=== PATIENT | female | born 1985 | race Caucasian/White ===

== ENCOUNTER 2019-07-25 19:05 | Emergency (ER) | payer OTHER ==
[2019-07-25 22:42] LABS: BASOPHILS % (AUTO) 0.6 %; EOSINOPHILS # (AUTO) 0.1 10^3/uL (0.0-0.7); EOSINOPHILS % (AUTO) 1.5 %; HGB - HEMOGLOBIN 13.2 g/dL (12.0-16.0); LYMPHOCYTES # (AUTO) 1.7 10^3/uL (1.5-3.5); LYMPHOCYTES % (AUTO) 35.5 %; MEAN CORPUSCULAR HEMOGLOBIN 27.2 pg (27.0-31.0); MEAN CORPUSCULAR HGB CONC 34.3 g/dL (32.0-36.0); MEAN CORPUSCULAR VOLUME 79.2 fL (81.0-99.0); MEAN PLATELET VOLUME 13.3 fL (7.9-10.8); MONOCYTES # (AUTO) 0.5 10^3/uL (0.0-1.0); MONOCYTES % (AUTO) 10.2 %; NEUTROPHILS # (AUTO) 2.5 10^3/uL (1.5-6.6); PLT - PLATELET COUNT 145 10^3/uL (130-450); RED BLOOD COUNT 4.86 10^6/uL (4.20-5.40); RED CELL DISTRIBUTION WIDTH 12.2 % (12.0-15.0); WHITE BLOOD COUNT 4.8 x10^3/uL (4.8-10.8)
[2019-07-25 22:54] LABS: GLUCOSE, URINE (UA) NEGATIVE (NEGATIVE); KETONES,URINE (UA) >=80 mg/dL (NEGATIVE); LEUKOCYTE ESTERASE, URINE NEGATIVE (NEGATIVE); NITRITE,URINE NEGATIVE (NEGATIVE); OCCULT BLOOD,URINE NEGATIVE (NEGATIVE); PROTEIN,URINE TRACE mg/dL (NEGATIVE); UROBILINOGEN,URINE 0.2 (NORMAL) E.U./dL (NORMAL)
[2019-07-25] MEDS ORDERED: METOCLOPRAMIDE 10 MG/2 ML VIAL IVP STA (22:55)
[2019-07-25] MEDS ORDERED: LACTATED RINGERS 1,000 ML IV STA (22:55)
--- NOTE | 2019-07-25 22:56 | ED Physician Documentation ---
History of Present Illness - Stated complaint Stated Complaint: VOMITING - Chief complaint Chief Complaint: Abd Pain - Additonal information Additional information: This is a 33-year-old G1, P0 female at 9 weeks who presents with persistent vomiting. She has been nauseated for weeks, she has seen her OB and has a confirmed IUP and was diagnosed with hyperemesis and has had medications including Zofran given to her, the Zofran seems to help a little bit but she still has been unable to eat any solid foods. She was given a prescription for Reglan but when she took the Reglan today she vomited it back up. She denies any abdominal pain. No dysuria. Review of Systems Constitutional: denies: Fever GI: reports: Nausea, Vomiting : denies: Dysuria Skin: denies: Rash Immunocompromised: denies: Immunocompromised PD PAST MEDICAL HISTORY - Past Medical History Past Medical History: No - Past Surgical History Past Surgical History: Yes HEENT: Tonsil/Adenoidectomy - Present Medications Home Medications: Ambulatory Orders Medication Instructions Recorded Confirmed Ondansetron Odt [Zofran Odt] 4 mg PO Q8HR PRN 07/25/19 07/25/19 Prenatl Vit6/Iron/FA/B12/Ca/D3 1 tab PO DAILY 07/25/19 07/25/19 [Mteryti Combo Pack] Promethazine Supp [Phenergan Supp] 25 mg HI Q8H PRN #8 supp 07/26/19 diphenhydrAMINE [Benadryl] 25 - 50 mg PO Q6H PRN #20 capsule 07/26/19 - Allergies Allergies/Adverse Reactions: Allergies Allergy/AdvReac Type Severity Reaction Status Date / Time No Known Drug Allergies Allergy Verified 07/25/19 19:17 - Social History Does the pt smoke?: No Smoking Status: Never smoker Does the pt drink ETOH?: No Does the pt have substance abuse?: No - Immunizations Immunizations are current?: Yes - POLST Patient has POLST: No PD ED PE NORMAL - Vitals Vital signs reviewed: Yes - General General: Alert and oriented X 3, No acute distress - HEENT HEENT: PERRL - Neck Neck: Supple, no meningeal sign - Cardiac Cardiac: RRR, No murmur - Respiratory Respiratory: Clear bilaterally - Abdomen Abdomen: Soft, Non tender, Non distended - Derm Derm: Warm and dry - Extremities Extremities: No deformity - Neuro Neuro: Alert and oriented X 3 - Psych Psych: Normal mood, Normal affect Results - Vitals Vitals: Vital Signs - 24 hr 07/25/19 07/26/19 19:17 00:21 Temperature 37 C 36.6 C Heart Rate 87 68 Respiratory 15 16 Rate Blood Pressure 120/81 H 100/60 O2 Saturation 98 100 Oxygen O2 Source Room air - Labs Labs: Laboratory Tests 07/25/19 07/25/19 07/25/19 22:17 22:17 22:50 WBC 4.8 RBC 4.86 Hgb 13.2 Hct 38.5 MCV 79.2 L MCH 27.2 MCHC 34.3 RDW 12.2 Plt Count 145 MPV 13.3 H Neut # (Auto) 2.5 Lymph # (Auto) 1.7 [place] # (Auto) 0.5 Eos # (Auto) 0.1 Baso # (Auto) 0.0 Absolute Nucleated RBC 0.00 Nucleated RBC % 0.0 Manual Slide Review Indicated Platelet Estimate NORMAL (130-450,000) Platelet Morphology 1+ LARGE PLATELETS RBC Morph Micro Appear NORMAL APPEARANCE Sodium 135 Potassium 4.1 Chloride 103 Carbon Dioxide 19 L Anion Gap 13.0 BUN 10 Creatinine 0.5 Estimated GFR (MDRD) 144 Glucose 77 Calcium 9.6 Total Bilirubin 0.8 AST 23 ALT 29 Alkaline Phosphatase 39 L Total Protein 7.7 Albumin 4.4 Globulin 3.3 Albumin/Globulin Ratio 1.3 Lipase 30 Urine Color YELLOW Urine Clarity CLEAR Urine pH 6.0 Ur Specific [place] >=1.030 H Urine Protein TRACE Urine Glucose (UA) NEGATIVE Urine Ketones >=80 H Urine Occult Blood NEGATIVE Urine Nitrite NEGATIVE Urine Bilirubin SMALL H Urine Urobilinogen 0.2 (NORMAL) Ur Leukocyte Esterase NEGATIVE Ur Microscopic Review NOT INDICATED PD MEDICAL DECISION MAKING - ED course Complexity details: considered differential (Hyperemesis, electrolyte abnormality, appendicitis, gastritis) ED course: Pt is non-toxic appearing, has a confirmed IUP and is diagnosed with hyperemesis gravidarum. Vitals unremarkable, labs unrevealing, and abdomen is benign. No focal tenderness to suggest acute abdominal process. She was given reglan and IV fluids and afterwards felt improved. Urine negative for infection. On reassessment she would like to go home. I discussed adding benadryl to see if this may help, and also prescribed a small number of phenergan suppositories for when she cannot tolerate pills without vomiting. I did discuss the category C status of phenergan. I discussed return precautions including abdominal pain, inability to hold down fluids, or any other concerning symptoms. Pt agrees and was discharged in the care of her . Departure - Departure Disposition: 01 Home, Self Care Clinical Impression: Hyperemesis gravidarum Condition: Good Instructions: Hyperemesis Follow-Up: Your,OB [Other] - Within 1 week Prescriptions: diphenhydrAMINE [Benadryl] 25 - 50 mg PO Q6H PRN #20 capsule PRN Reason: Nausea / Vomiting Promethazine Supp [Phenergan Supp] 25 mg HI Q8H PRN #8 supp PRN Reason: Nausea / Vomiting Comments: You were seen today for vomiting, your labs are reassuring. You may try the Benadryl in addition to the Zofran which you are taking now. If you are unable to hold down medications, you may try the Phenergan suppositories. Continue to follow-up with your OB provider on your vomiting, and return to emergency department if you are having any significant abdominal pain, or vomiting despite the medications. Discharge Date/Time: 07/26/19 00:27
[2019-07-25 22:58] LABS: BILIRUBIN,URINE SMALL (NEGATIVE); CLARITY,URINE CLEAR (CLEAR); ICTOTEST,URINE POSITIVE
[2019-07-25 23:03] LABS: PLATELET ESTIMATE, MANUAL NORMAL (130-450,000) (NORMAL); PLATELET MORPHOLOGY 1+ LARGE PLATELETS (NORMAL); RBC MORPHOLOGY (MULTIPLE) NORMAL APPEARANCE (NORMAL)
[2019-07-25 23:11] LABS: ALBUMIN 4.4 g/dL (3.2-5.5); ALBUMIN/GLOBULIN RATIO 1.3 (1.0-2.2); BILIRUBIN,TOTAL 0.8 mg/dL (0.2-1.0); CALCIUM 9.6 mg/dL (8.5-10.3); CREATININE 0.5 mg/dL (0.4-1.0); TOTAL PROTEIN 7.7 g/dL (6.7-8.2)
[2019-07-26 00:22] VITALS: BP 100/60
== END 2019-07-26 00:27 | disposition home or self-care (01) ==
LOC: ED 19:05
DX: O21.0 Mild hyperemesis gravidarum (principal); Z3A.09 9 weeks gestation of pregnancy
CPT/HCPCS: 36415; 80053; 81003; 83690; 85025; 96361; 96374; 99283; 99284; J2765; J7120; 81001